=== PATIENT | male | born 1935 | race Caucasian/White ===

== ENCOUNTER → 2019-09-16 | Outpatient (CLI) | payer MEDICARE | LOC: M.MRI 07:30 | DX: M51.35 Other intervertebral disc degeneration, thoracolumbar region (principal); M51.37 Other intervertebral disc degeneration, lumbosacral region; M48.56XA Collapsed vertebra, not elsewhere classified, lumbar region, initial encounter for fracture; M48.07 Spinal stenosis, lumbosacral region; M47.814 Spondylosis without myelopathy or radiculopathy, thoracic region; G89.29 Other chronic pain; M41.86 Other forms of scoliosis, lumbar region; M85.88 Other specified disorders of bone density and structure, other site; I70.0 Atherosclerosis of aorta ==

== ENCOUNTER → 2019-09-27 | Outpatient (CLI) | payer MEDICARE | LOC: M.RAD 15:25 | DX: S32.020A Wedge compression fracture of second lumbar vertebra, initial encounter for closed fracture (principal); Z72.0 Tobacco use; X58.XXXA Exposure to other specified factors, initial encounter; Y93.89 Activity, other specified; Y92.89 Other specified places as the place of occurrence of the external cause; Y99.8 Other external cause status ==

== ENCOUNTER → 2019-10-06 | Outpatient (CLI) | payer MEDICARE ==
[~2019-10-06] MED LIST: FOLIC ACID1 MG PO; METHOTREXATE 22.5 M1 PO; tylenol PO
== END ==
LOC: M.PC 02:08
DX: M51.36 Other intervertebral disc degeneration, lumbar region (principal); M47.816 Spondylosis without myelopathy or radiculopathy, lumbar region; M48.56XA Collapsed vertebra, not elsewhere classified, lumbar region, initial encounter for fracture; M48.061 Spinal stenosis, lumbar region without neurogenic claudication

== ENCOUNTER → 2020-06-19 | Outpatient (CLI) | payer MEDICARE | LOC: M.PC 10:07 | PROVIDERS: ATTEND Physical Medicine & Rehabilitation | DX: M51.36 Other intervertebral disc degeneration, lumbar region (principal); M47.816 Spondylosis without myelopathy or radiculopathy, lumbar region; M48.061 Spinal stenosis, lumbar region without neurogenic claudication; R19.5 Other fecal abnormalities; M48.56XA Collapsed vertebra, not elsewhere classified, lumbar region, initial encounter for fracture ==

== ENCOUNTER → 2020-06-22 | Outpatient (CLI) | payer MEDICARE | LOC: M.MRI 15:04 | PROVIDERS: ATTEND Physical Medicine & Rehabilitation | DX: S22.089A Unspecified fracture of T11-T12 vertebra, initial encounter for closed fracture (principal); S22.069A Unspecified fracture of T7-T8 vertebra, initial encounter for closed fracture; S32.049A Unspecified fracture of fourth lumbar vertebra, initial encounter for closed fracture; S32.029A Unspecified fracture of second lumbar vertebra, initial encounter for closed fracture; M48.061 Spinal stenosis, lumbar region without neurogenic claudication; X58.XXXA Exposure to other specified factors, initial encounter; Y93.89 Activity, other specified; Y92.89 Other specified places as the place of occurrence of the external cause; Y99.8 Other external cause status ==

== ENCOUNTER → 2020-06-30 | Outpatient (CLI) | payer MEDICARE ==
[~2020-06-30] VITALS: Ht 175.3 cm; Wt 52.2 kg
[2020-06-30 10:26] VITALS: BP 116/65
[2020-06-30 10:29] LABS: HEMATOCRIT 47.8 % (42.0-52.0); HEMOGLOBIN 15.5 gm/dL (14.0-18.0); MCH 32.7 pg (26.0-34.0); MCHC 32.4 g/dL (28.0-37.0); MCV 100.8 fL (80.0-100.0); MPV 8.7 fl. (7.2-11.1); RBC 4.75 mil/uL (4.50-6.00); RDW-CV 13.9 % (10.5-14.5)
[2020-06-30 10:35] VITALS: BP 116/65
[2020-06-30 10:38] LABS: POTASSIUM 4.5 mmol/L (3.5-5.1)
[2020-06-30 10:42] LABS: APTT 26.5 Seconds (25.0-31.3); CALCIUM 9.4 mg/dL (8.5-10.1); PROTIME 10.5 Seconds (9.20-11.50)
[2020-06-30 12:55] VITALS: BP 139/83
[2020-06-30 13:10] VITALS: BP 110/74
[2020-06-30 13:35] VITALS: BP 116/76
[2020-06-30 13:53] VITALS: BP 116/73
== END | disposition home or self-care (01) ==
LOC: M.INT 09:15
PROVIDERS: Radiology Diagnostic Radiology; ATTEND Physical Medicine & Rehabilitation
DX: M80.08XA Age-related osteoporosis with current pathological fracture, vertebra(e), initial encounter for fracture (principal); M54.9 Dorsalgia, unspecified; M51.36 Other intervertebral disc degeneration, lumbar region; M48.061 Spinal stenosis, lumbar region without neurogenic claudication; F17.210 Nicotine dependence, cigarettes, uncomplicated; Z98.890 Other specified postprocedural states; Z79.899 Other long term (current) drug therapy; Z90.49 Acquired absence of other specified parts of digestive tract

== ENCOUNTER 2021-08-05 03:44 | Emergency (ER) | payer MEDICARE ==
[~2021-08-05] VITALS: Ht 167.6 cm; Wt 63.5 kg
[2021-08-05] MEDS ORDERED: METHOTREXATE 22.5 M1 PO (04:04)
[2021-08-05] MEDS ORDERED: FOLIC ACID1 MG PO (04:05)
[2021-08-05 07:35] VITALS: BP 109/73
== END 2021-08-05 07:35 | disposition home or self-care (01) ==
LOC: M.ERS 03:44
DX: S20.224A Contusion of middle back wall of thorax, initial encounter (principal); Z90.49 Acquired absence of other specified parts of digestive tract; Z79.899 Other long term (current) drug therapy; W19.XXXA Unspecified fall, initial encounter; Y93.89 Activity, other specified; Y92.89 Other specified places as the place of occurrence of the external cause; Y99.8 Other external cause status

== ENCOUNTER 2021-08-05 19:43 | Emergency (ER) | payer MEDICARE ==
[~2021-08-05] VITALS: Ht 180.3 cm; Wt 50.8 kg
[2021-08-05 20:55] LABS: ABSOLUTE LYMPHOCYTES 0.6 thou/uL (0.8-5.3); ABSOLUTE MONOCYTES 0.6 thou/uL (0.0-1.2); ABSOLUTE NEUTROPHILS 2.4 thou/uL (1.6-8.1); BASOPHILS 0.6 %; HEMATOCRIT 44.1 % (42.0-52.0); HEMOGLOBIN 14.8 gm/dL (14.0-18.0); LYMPHOCYTES 16.3 %; MCH 32.4 pg (26.0-34.0); MCHC 33.6 g/dL (28.0-37.0); MCV 96.2 fL (80.0-100.0); MONOCYTES 16.4 %; NUCLEATED RBCS 0 /100WBC; PLATELET COUNT* 143 thou/uL (150-400); POLYS 66.7 %; RBC 4.59 mil/uL (4.50-6.00); RDW-CV 14.4 % (10.5-14.5); WBC 3.6 thou/uL (4.0-11.0)
[2021-08-05 21:13] LABS: CALCIUM 8.2 mg/dL (8.5-10.1); CREATININE 1.5 mg/dL (0.6-1.3); POTASSIUM 4.1 mmol/L (3.5-5.1)
[2021-08-05 21:18] LABS: ALBUMIN 2.9 g/dL (3.4-5.0); TOTAL BILIRUBIN 0.3 mg/dL (<0.1-1.0); TOTAL PROTEIN 6.9 g/dL (6.4-8.2)
[2021-08-05 23:46] LABS: URINE BLOOD 3+ (Negative); URINE COLOR BROWN; URINE GLUCOSE-RANDOM NEGATIVE (Negative); URINE KETONES NEGATIVE (Negative); URINE LEUKOCYTES-REFLEX NEGATIVE (Negative); URINE NITRITE-REFLEX NEGATIVE (Negative); URINE PROTEIN 2+ (Negative); URINE SPECIFIC GRAVITY >= 1.030 (1.005-1.030); URINE UROBILINOGEN 0.2 E.U./dl (0.2-1.0)
[2021-08-05 23:47] LABS: ICTOTEST (BILI CONFIRMATORY) Negative (Negative); URINE BILIRUBIN 1+ (Negative)
[2021-08-05 23:48] LABS: URINE CLARITY SL CLOUDY
[2021-08-05 23:50] LABS: BACTERIA-REFLEX 1-9 Few /HPF (None Seen); CASTS None Seen /LPF (None Seen); MUCUS 0-3 Light strn/LPF (None Seen); SQUAMOUS NONE SEEN /LPF (0-3); URINE RBC >20 Many /HPF (0-2); URINE WBC-REFLEX None Seen /HPF (0-5)
[2021-08-05 23:51] LABS: AMORPHOUS URATES Moderate /LPF (None Seen)
[2021-08-06 01:03] VITALS: BP 105/72
== END 2021-08-06 01:05 | disposition home or self-care (01) ==
LOC: M.ERS 19:43
PROVIDERS: Personal Emergency Response Attendant
DX: R53.1 Weakness (principal); Z79.899 Other long term (current) drug therapy; Z90.49 Acquired absence of other specified parts of digestive tract; W19.XXXA Unspecified fall, initial encounter; Y93.89 Activity, other specified; Y92.89 Other specified places as the place of occurrence of the external cause; Y99.8 Other external cause status